=== PATIENT | female | born 1990 | race Caucasian/White ===

== ENCOUNTER 2017-05-06 18:38 | Emergency (ER) | payer OTHER ==
[2017-05-06 18:44] VITALS: BP 136/91; PULSE 115; RESP 20; TEMP 99.1
--- NOTE | 2017-05-06 19:01 | ED ---
ENT HPI - General Chief complaint: ENT Stated complaint: throat pain Time Seen by Provider: 05/06/17 18:53 Source: patient Mode of arrival: ambulatory Limitations: no limitations - History of Present Illness Initial comments: 26-year-old female presents with upper respiratory symptoms for last 3 days. Patient having a lot of congestion that she is coughing up green-yellow mucus. Patient states her throat very sore and it's not getting better. Patient states over last 2 days it's gotten worse even though she is trying Mucinex. No recorded fevers no change in appetite. Patient has had some sinus pressure congestion and headaches as well. MD complaint: sore throat - Related Data Previous Rx's Medication Instructions Recorded Amoxicillin 875 mg PO Q12HR #20 tablet 05/06/17 Allergies Allergy/AdvReac Type Severity Reaction Status Date / Time No Known Allergies Allergy Verified 05/06/17 18:41 Review of Systems ROS Statement: Those systems with pertinent positive or pertinent negative responses have been documented in the HPI. ROS Other: All systems not noted in ROS Statement are negative. Constitutional: Denies: fever, chills ENT: Reports: throat pain. Denies: ear pain Respiratory: Reports: cough Past Medical History Past Medical History: No Reported History History of Any Multi-Drug Resistant Organisms: None Reported Past Surgical History: No Surgical Hx Reported Past Psychological History: No Psychological Hx Reported Smoking Status: Current every day smoker Past Alcohol Use History: None Reported Past Drug Use History: None Reported General Exam Limitations: no limitations General appearance: alert, in no apparent distress Eye exam: Present: normal appearance, PERRL, EOMI. Absent: scleral icterus, conjunctival injection, periorbital swelling ENT exam: Present: mucous membranes moist Expanded Throat exam: other (Injection noted in the posterior pharynx) Neck exam: Present: tenderness (Right anterior lymph node), lymphadenopathy Respiratory exam: Present: normal lung sounds bilaterally Cardiovascular Exam: Present: regular rate, normal rhythm, normal heart sounds. Absent: systolic murmur, diastolic murmur, rubs, gallop, clicks Course Vital Signs 05/06/17 18:41 Temperature 99.1 F Pulse Rate 115 H Respiratory 20 Rate Blood Pressure 136/91 O2 Sat by Pulse 96 Oximetry Medical Decision Making - Medical Decision Making Discussed with patient she should try some decongestants along with ibuprofen along with the antibiotic get him for sinus drainage. Patient to take medication fully. Patient to return for recheck if not improving or follow-up with family doctor. Disposition Clinical Impression: Acute sinusitis, Sore throat Disposition: HOME SELF-CARE Condition: Good Instructions: Sinusitis (ED), Pharyngitis (ED) Prescriptions: Amoxicillin 875 mg PO Q12HR #20 tablet Referrals: Magdiel Benítez MD [Primary Care Provider] - 1-2 days Time of Disposition: 19:00
== END 2017-05-06 19:18 | disposition home or self-care (01) ==
LOC: EC 18:38
DX: J01.90 Acute sinusitis, unspecified (principal); J02.9 Acute pharyngitis, unspecified; F17.200 Nicotine dependence, unspecified, uncomplicated
CPT/HCPCS: 99282

== ENCOUNTER 2024-05-28 18:35 | Emergency (ER) | payer OTHER ==
--- NOTE | 2024-05-28 18:56 | ED ---
Female Urogenital HPI - General Chief complaint: Vaginal Bleeding Stated complaint: Vaginal bleeding Time Seen by Provider: 05/28/24 18:56 Source: patient, RN notes reviewed, old records reviewed Mode of arrival: ambulatory Limitations: no limitations - History of Present Illness Initial comments: This is a 33-year-old female for vaginal bleeding, patient unsure of positive coming in for significant vaginal bleeding here in the emergency per sistent bleeding with clotting here in the ER which she believes is increasing since this afternoon. No abdominal pain may be some cramping MD Complaint: vaginal bleeding -: hour(s) Radiation: suprapubic Severity: moderate Severity scale (1-10): 4 Quality: cramping Consistency: constant Improves with: none Worsens with: none Patient : No Associated Symptoms: vaginal bleeding, abdominal pain - Related Data Home Medications Medication Instructions Recorded Confirmed ALPRAZolam [Xanax] 1 mg PO DAILY PRN 08/19/17 08/19/17 Previous Rx's Medication Instructions Recorded Dicyclomine [Bentyl] 20 mg PO QID PRN #20 tablet 08/19/17 Ondansetron Odt [Zofran Odt] 4 mg PO Q8HR PRN #15 tab 08/19/17 Allergies Allergy/AdvReac Type Severity Reaction Status Date / Time No Known Allergies Allergy Verified 05/28/24 18:46 Review of Systems ROS Statement: Those systems with pertinent positive or pertinent negative responses have been documented in the HPI. ROS Other: All systems not noted in ROS Statement are negative. Past Medical History Past Medical History: Hyperlipidemia Additional Past Medical History / Comment(s): ovarian cysts History of Any Multi-Drug Resistant Organisms: None Reported Past Surgical History: No Surgical Hx Reported Past Psychological History: Anxiety Smoking Status: Current some day smoker Past Alcohol Use History: Occasional Past Drug Use History: None Reported General Exam Limitations: no limitations General appearance: alert, in no apparent distress Head exam: Present: atraumatic, normocephalic, normal inspection Eye exam: Present: normal appearance, PERRL, EOMI. Absent: scleral icterus, conjunctival injection, periorbital swelling ENT exam: Present: normal exam, mucous membranes moist Neck exam: Present: normal inspection. Absent: tenderness, meningismus, lymphadenopathy Respiratory exam: Present: normal lung sounds bilaterally. Absent: respiratory distress, wheezes, rales, rhonchi, stridor Cardiovascular Exam: Present: regular rate, normal rhythm, normal heart sounds. Absent: systolic murmur, diastolic murmur, rubs, gallop, clicks GI/Abdominal exam: Present: soft, normal bowel sounds. Absent: distended, tenderness, guarding, rebound, rigid Extremities exam: Present: normal inspection, full ROM, normal capillary refill. Absent: tenderness, pedal edema, joint swelling, calf tenderness Back exam: Present: normal inspection Neurological exam: Present: alert, oriented X3, CN II-XII intact Psychiatric exam: Present: normal affect, normal mood Skin exam: Present: warm, dry, intact, normal color. Absent: rash Course Vital Signs 05/28/24 05/28/24 05/28/24 18:42 21:20 21:51 Temperature 98.1 F Pulse Rate 139 H 80 90 Respiratory 18 16 16 Rate Blood Pressure 140/94 135/81 132/79 O2 Sat by Pulse 99 100 100 Oximetry - Reevaluation(s) Reevaluation #1: 05/28/24 21:24 Medical records reviewed Reevaluation #2: 05/28/24 21:24 Patient symptoms unchanged, bleeding is slowing down per patient Reevaluation #3: 05/28/24 21:24 Patient informed of results and questions answered Reevaluation #4: Was pt. sent in by a medical professional or institution (DAMON Guerrero, FIELD SECRETARY, urgent care, hospital, or correction...) When possible be specific @ -no Did you speak to anyone other than the patient for history (EMS, parent, family, police, friend...)? What history was obtained from this source @ -no Did you review nursing and triage notes (agree or disagree)? Why? @ -agree Are old charts reviewed (outside hosp., previous admission, EMS record, old EKG, old radiological studies, urgent care reports/EKG's, correction records)? Report findings @ -yes Differential Diagnosis (chest pain, altered mental status, abdominal pain women, abdominal pain men, vaginal bleeding, weakness, fever, dyspnea, syncope, headache, dizziness, GI bleed, back pain, seizure, CVA, palpatations, mental health, musculoskeletal)? @ -prior EKG interpreted by me (3pts min.). @ -yes X-rays interpreted by me (1pt min.). @ -yes negative for acute disease CT interpreted by me (1pt min.). @ -no U/S interpreted by me (1pt. min.). @ -no What testing was considered but not performed or refused? (CT, X-rays, U/S, labs)? Why? @ -none What meds were considered but not given or refused? Why? @ -none Did you discuss the management of the patient with other professionals (professionals i.e. DrEduar, PA, FIELD SECRETARY, lab, RT, psych nurse, licensed social worker, pleater, teacher, civil preparedness training officer, behavioral health case manager)? Give summary @ -no Was smoking cessation discussed for >3mins.? @ -no Was critical care preformed (if so, how long)? @ -no Were there social determinants of health that impacted care today? How? (Homelessness, low income, unemployed, alcoholism, drug addiction, transportation, low edu. Level, literacy, decrease access to med. care, penitentiary, rehab)? @ -none Was there de-escalation of care discussed even if they declined (Discuss DNR or withdrawal of care, Hospice)? DNR status @ -no What co-morbidities impacted this encounter? (DM, HTN, Smoking, COPD, CAD, Cancer, CVA, ARF, Chemo, Hep., AIDS, mental health diagnosis, sleep apnea, morbid obesity)? @ -none Was patient admitted / discharged? Hospital course, mention meds given and route, prescriptions, significant lab abnormalities, going to OR and other pertinent info. @ - Undiagnosed new problem with uncertain prognosis? @ -no Drug Therapy requiring intensive monitoring for toxicity (Heparin, Nitro, Insulin, Cardizem)? @ -no Were any procedures done? @ -no Diagnosis/symptom? @ - Acute, or Chronic, or Acute on Chronic? @ -Acute Uncomplicated (without systemic symptoms) or Complicated (systemic symptoms)? @ -Complicated Side effects of treatment? @ -no Exacerbation, Progression, or Severe Exacerbation? @ -exacerbation Poses a threat to life or bodily function? How? (Chest pain, [place], [place], pneumonia, PE, COPD, DKA, ARF, appy, cholecystitis, CVA, Diverticulitis, Homicidal, Suicidal, threat to staff... and all critical care pts) @ -yes Reevaluation #5: Differential Abdominal Pain Women: Appendicitis, Cholecystitis, diverticulosis, ischemic bowel, pancreatitis, hepatitis, UTI, gastroenteritis, AAA, incarcerated hernia, bowel obstruction, co nstipation, inflammatory bowel, hepatitis, peptic ulcer disease, splenic infarction, perforated viscus, vulvitis, ovarian torsion, PID, kidney stone, placenta abruption, this is not meant to be an all-inclusive list Medical Decision Making - Medical Decision Making 33 female with vaginal bleeding significant here in the ER abdominal pain is re solved, patient's vaginal bleeding is improving, CBC is relatively unchanged with dilution, ultrasound pelvis negative for acute disease - Lab Data Result diagrams: 05/28/24 21:09 05/28/24 19:32 Lab Results 05/28/24 05/28/24 05/28/24 Range/Units 19:25 19:32 19:32 WBC 10.6 (3.8-10.6) k/uL RBC 4.96 (3.80-5.40) m/uL Hgb 10.6 L (11.4-16.0) gm/dL Hct 34.4 (34.0-46.0) % MCV 69.3 L (80.0-100.0) fL MCH 21.5 L (25.0-35.0) pg MCHC 31.0 (31.0-37.0) g/dL RDW 18.8 H (11.5-15.5) % Plt Count 406 (150-450) k/uL MPV 7.6 Neutrophils % 66 % Lymphocytes % 27 % Monocytes % 4 % Eosinophils % 2 % Basophils % 0 % Neutrophils # 7.0 (1.3-7.7) k/uL Lymphocytes # 2.9 (1.0-4.8) k/uL Monocytes # 0.4 (0-1.0) k/uL Eosinophils # 0.2 (0-0.7) k/uL Basophils # 0.0 (0-0.2) k/uL Hypochromasia Moderate Anisocytosis Slight Microcytosis Marked Sodium (137-145) mmol/L Potassium (3.5-5.1) mmol/L Chloride (98-107) mmol/L Carbon Dioxide (22-30) mmol/L Anion Gap mmol/L BUN (7-17) mg/dL Creatinine (0.52-1.04) mg/dL Est GFR (CKD-EPI)AfAm (>60 ml/min/1.73 sqM) Est GFR (CKD-EPI)NonAf (>60 ml/min/1.73 sqM) Glucose (74-99) mg/dL Calcium (8.4-10.2) mg/dL Total Bilirubin (0.2-1.3) mg/dL AST (14-36) U/L ALT (4-34) U/L Alkaline Phosphatase (38-126) U/L Total Protein (6.3-8.2) g/dL Albumin (3.5-5.0) g/dL HCG, Qual Urine Color Colorless Urine Appearance Clear (Clear) Urine pH 6.5 (5.0-8.0) Ur Specific [place] 1.000 L (1.001-1.035) Urine Protein Negative (Negative) Urine Glucose (UA) Negative (Negative) Urine Ketones Negative (Negative) Urine Blood Moderate H (Negative) Urine Nitrite Negative (Negative) Urine Bilirubin Negative (Negative) Urine Urobilinogen <2.0 (<2.0) mg/dL Ur Leukocyte Esterase Negative (Negative) Urine RBC <1 (0-5) /hpf Ur Squamous Epith Cells <1 (0-4) /hpf Blood Type O Positive Blood Type Recheck O Pos Bld Type Recheck Status No Antibody Screen NEGATIVE Spec Expiration Date 05/31/2024 - 232405/28/24 05/28/24 Range/Units 19:32 21:09 WBC 13.0 H (3.8-10.6) k/uL RBC 4.82 (3.80-5.40) m/uL Hgb 10.2 L (11.4-16.0) gm/dL Hct 34.1 (34.0-46.0) % MCV 70.8 L (80.0-100.0) fL MCH 21.1 L (25.0-35.0) pg MCHC 29.8 L (31.0-37.0) g/dL RDW 18.9 H (11.5-15.5) % Plt Count 397 (150-450) k/uL MPV 7.4 Neutrophils % 78 % Lymphocytes % 16 % Monocytes % 4 % Eosinophils % 1 % Basophils % 0 % Neutrophils # 10.2 H (1.3-7.7) k/uL Lymphocytes # 2.1 (1.0-4.8) k/uL Monocytes # 0.5 (0-1.0) k/uL Eosinophils # 0.1 (0-0.7) k/uL Basophils # 0.0 (0-0.2) k/uL Hypochromasia Moderate Anisocytosis Slight Microcytosis Marked Sodium 139 (137-145) mmol/L Potassium 4.0 (3.5-5.1) mmol/L Chloride 108 H (98-107) mmol/L Carbon Dioxide 22 (22-30) mmol/L Anion Gap 9 mmol/L BUN 12 (7-17) mg/dL Creatinine 0.83 (0.52-1.04) mg/dL Est GFR (CKD-EPI)AfAm >90 (>60 ml/min/1.73 sqM) Est GFR (CKD-EPI)NonAf >90 (>60 ml/min/1.73 sqM) Glucose 85 (74-99) mg/dL Calcium 9.3 (8.4-10.2) mg/dL Total Bilirubin 0.2 (0.2-1.3) mg/dL AST 23 (14-36) U/L ALT 17 (4-34) U/L Alkaline Phosphatase 91 (38-126) U/L Total Protein 8.2 (6.3-8.2) g/dL Albumin 4.7 (3.5-5.0) g/dL HCG, Qual Not Detected Urine Color Urine Appearance (Clear) Urine pH (5.0-8.0) Ur Specific [place] (1.001-1.035) Urine Protein (Negative) Urine Glucose (UA) (Negative) Urine Ketones (Negative) Urine Blood (Negative) Urine Nitrite (Negative) Urine Bilirubin (Negative) Urine Urobilinogen (<2.0) mg/dL Ur Leukocyte Esterase (Negative) Urine RBC (0-5) /hpf Ur Squamous Epith Cells (0-4) /hpf Blood Type Blood Type Recheck Bld Type Recheck Status Antibody Screen Spec Expiration Date - Radiology Data Radiology results: report reviewed, image reviewed Disposition Clinical Impression: Menorrhagia, Dysfunctional uterine bleeding Disposition: HOME SELF-CARE Condition: Good Instructions (If sedation given, give patient instructions): Abnormal (Dysfunctional) Uterine Bleeding (ED), Dysmenorrhea (ED) Is patient prescribed a controlled substance at d/c from ED?: No Referrals: Tremp,Claudia S, DO [Doctor of Osteopathic Medicine] - 1-2 days Time of Disposition: 22:00
[2024-05-28] MEDS: SODIUM CHLORIDE 0.9% 1,000 ML IV ONE (19:40)
[2024-05-28 19:50] LABS: WBC 10.6 k/uL (3.8-10.6)
[2024-05-28 19:51] LABS: Anisocytosis Slight; Basophils % (A) 0 %; Eosinophils # (A) 0.2 k/uL (0-0.7); Eosinophils % (A) 2 %; HCT 34.4 % (34.0-46.0); HGB 10.6 gm/dL (11.4-16.0); Hypochromasia Moderate; Lymphocytes # (A) 2.9 k/uL (1.0-4.8); Lymphocytes % (A) 27 %; MCH 21.5 pg (25.0-35.0); MCV 69.3 fL (80.0-100.0); Mean Platelet Volume 7.6; Microcytosis Marked; Monocytes # (A) 0.4 k/uL (0-1.0); Monocytes % (A) 4 %; Neutrophils % (A) 66 %; Platelet Count 406 k/uL (150-450); RBC 4.96 m/uL (3.80-5.40); RDW 18.8 % (11.5-15.5)
[2024-05-28 19:52] LABS: Appearance,Urine Clear (Clear); Bilirubin,Urine Negative (Negative); Blood,Urine Moderate (Negative); Color,Urine Colorless; Glucose,Urine (UA) Negative (Negative); Ketones,Urine Negative (Negative); Leukocyte Esterase,Urine Negative (Negative); Nitrite,Urine Negative (Negative); PH, Urine 6.5 (5.0-8.0); Protein,Urine Negative (Negative); RBC,Urine <1 /hpf (0-5); Squamous Epithelial Cell,Urine <1 /hpf (0-4); Urobilinogen,Urine <2.0 mg/dL (<2.0)
[2024-05-28 20:02] LABS: HCG,Qualitative Serum Not Detected
[2024-05-28 20:05] LABS: ALT 17 U/L (4-34); AST 23 U/L (14-36); African American GFR (CKD) >90 (>60 ml/min/1.73 sqM); Albumin 4.7 g/dL (3.5-5.0); Alkaline Phosphatase 91 U/L (38-126); Anion Gap 9 mmol/L; Blood Urea Nitrogen 12 mg/dL (7-17); Calcium 9.3 mg/dL (8.4-10.2); Carbon Dioxide 22 mmol/L (22-30); Chloride 108 mmol/L (98-107); Glucose 85 mg/dL (74-99); Non-African American GFR(CKD) >90 (>60 ml/min/1.73 sqM); Sodium 139 mmol/L (137-145); Total Bilirubin 0.2 mg/dL (0.2-1.3); Total Protein 8.2 g/dL (6.3-8.2)
[2024-05-28 21:19] LABS: Anisocytosis Slight; Basophils % (A) 0 %; Eosinophils # (A) 0.1 k/uL (0-0.7); Eosinophils % (A) 1 %; HCT 34.1 % (34.0-46.0); HGB 10.2 gm/dL (11.4-16.0); Hypochromasia Moderate; Lymphocytes # (A) 2.1 k/uL (1.0-4.8); Lymphocytes % (A) 16 %; MCH 21.1 pg (25.0-35.0); MCHC 29.8 g/dL (31.0-37.0); MCV 70.8 fL (80.0-100.0); Mean Platelet Volume 7.4; Microcytosis Marked; Monocytes # (A) 0.5 k/uL (0-1.0); Monocytes % (A) 4 %; Neutrophils # (A) 10.2 k/uL (1.3-7.7); Neutrophils % (A) 78 %; Platelet Count 397 k/uL (150-450); RBC 4.82 m/uL (3.80-5.40); RDW 18.9 % (11.5-15.5)
--- NOTE | 2024-05-28 21:42 | US ---
EXAMINATION TYPE: US pelvis complete transvag DATE OF EXAM: 05/28/2024 COMPARISON: NONE CLINICAL INDICATION: Female, 33 years old with history of vaginal bleeding; Patient states heavy vagi nal bleeding. Bleeds everyday. Hx of "golf ball size mass in ovary" in 2018. NO PAIN. TECHNIQUE: Transvaginal (TV) and Transabdominal (TA) . Transabdominal grayscale sonographic images of the pelvis were acquired. Transvaginal sonographic im ages were medically necessary to better assess the following anatomy: Ovaries Doppler imaging: Color Doppler Images were obtained. FINDINGS: Date of LMP: Bleeds everyday EXAM MEASUREMENTS: Uterus: 11.2 x 6.8 x 7.7 cm Endometrial Stripe: Difficult to clearly visualize, estimated 3.8cm cm Right Ovary: 2.6 x 1.2 x 1.5 cm Left Ovary: 2.0 x 1.5 x 1.9 cm 1. Uterus: Anteverted Enlarged 2. Endometrium: Difficult to clearly visualize, appears thickened 3. Right Ovary: follicular changes seen, good color doppler flow seen 4. Left Ovary: follicular changes seen, good color doppler flow seen 5. Bilateral Adnexa: There is a 7.8 x 5.2 x 5.9cm hypoechoic, heterogneoeus area seen in the left a dnexa with internal vascularity 6. Posterior cul-de-sac: no free fluid seen IMPRESSION: 1. Heterogenous myometrium. The Endometrium poorly visualized hand appears thickened. Further evalua tion recommended with MRI with IV contrast. If it is thickened correlate for endometrial hyperplasia versus submucosal fibroid versus other. 2. Left adnexal masslike area measuring up to 7.8 cm with internal vascularity. This can be followed up with MRI solid ovarian use of neoplasm versus pedunculated fibroid versus others should be in the differential. [facility], Workstation: [id number], 05/28/2024 9:40 PM
[2024-05-28 22:15] VITALS: BP 131/80; PULSE 89; RESP 18; TEMP 97.9
== END 2024-05-28 22:14 | disposition home or self-care (01) ==
LOC: EC 18:35
DX: N92.0 Excessive and frequent menstruation with regular cycle (principal); N93.8 Other specified abnormal uterine and vaginal bleeding; F17.200 Nicotine dependence, unspecified, uncomplicated
CPT/HCPCS: 36415; 76830; 76856; 80053; 81001; 84703; 85025; 86850; 86900; 86901; 99284